=== PATIENT | female | born 1960 | race Caucasian/White ===

== ENCOUNTER 2018-09-29 15:14 | Emergency (ER) | payer OTHER ==
[~2018-09-29] VITALS: Ht 157.5 cm; Wt 69.4 kg
[2018-09-29] MEDS ORDERED: ASPI81CH PO (15:30)
[2018-09-29] MEDS ORDERED: ALPR.5 PO (15:30)
[2018-09-29 15:51] LABS: BASOPHILS ABSOLUTE AUTO 0.04 K/mm3 (0.00-0.23); BASOPHILS PERCENT AUTO 1 % (0-2); EOSINOPHILS ABSOLUTE AUTO 0.11 K/mm3 (0.00-0.68); EOSINOPHILS PERCENT AUTO 2 % (0-6); Hematocrit 45.8 % (33.0-51.0); IMMATURE GRAN ABSOLUTE AUTO 0.01 K/mm3 (0.00-0.10); IMMATURE GRAN PERCENT AUTO 0 % (0-1); LYMPHOCYTES ABSOLUTE AUTO 2.55 K/mm3 (0.84-5.20); LYMPHOCYTES PERCENT AUTO 39 % (21-46); MONOCYTES ABSOLUTE AUTO 0.43 K/mm3 (0.16-1.47); MONOCYTES PERCENT AUTO 7 % (4-13); Mean Corpuscular HGB Conc 32.8 g/dL (31.5-36.5); Mean Corpuscular Volume 95 fL (80-100); Mean Platelet Volume 9.1 fL (9.1-12.4); NEUTROPHILS ABSOLUTE AUTO 3.37 K/mm3 (1.96-9.15); NEUTROPHILS PERCENT AUTO 52 % (41-73); Platelet Count 301 K/mm3 (150-400); RDW Coefficient Variation 12.5 % (11.7-14.2); RDW Standard Deviation 43.9 fL (35.1-46.3); Red Blood Cell Count 4.84 M/mm3 (3.80-5.20); White Blood Cell Count 6.51 K/mm3 (4.00-11.30)
[2018-09-29 16:13] LABS: Alanine Aminotransfer (ALT/SGP 32 U/L (12-78); Albumin, Blood 3.9 g/dL (3.4-5.0); Albumin/Globulin Ratio 1.2 (0.8-1.8); Alk Phos 90 U/L (50-136); Anion Gap 3 mmol/L (6-16); Aspartate Aminotrans (AST/SGOT 13 U/L (12-37); Bilirubin, Total 0.3 mg/dL (0.1-1.0); Blood Urea Nitrogen 13 mg/dL (8-24); Bun/Creatinine Ratio 17.6 (12.0-20.0); CO2, Blood 31 mmol/L (21-32); Calcium, Blood 10.4 mg/dL (8.5-10.1); Chloride, Blood 104 mmol/L (98-108); Creatinine, Blood 0.74 mg/dL (0.40-1.00); Globulin, Blood 3.2 g/dL (2.2-4.0); Glomerular Filtration Rate >60 (60-); Glucose, Blood 94 mg/dL (70-99); Sodium, Blood 138 mmol/L (136-145); Total Protein, Blood 7.1 g/dL (6.4-8.2); Troponin I <0.015 ng/mL (0.000-0.040)
== END 2018-09-29 17:52 | disposition home or self-care (01) ==
LOC: ER 15:14
PROVIDERS: Physician Assistant
DX: R07.9 Chest pain, unspecified (principal); Z79.82 Long term (current) use of aspirin; F41.9 Anxiety disorder, unspecified
CPT/HCPCS: 36415; 71046; 80053; 84484; 85025; 93005; 93010; 99285-25

== ENCOUNTER → 2019-03-23 | Outpatient (CLI) | payer OTHER ==
[~2019-03-23] MED LIST: ALPR.5 PO; ASPI81CH PO
== END | disposition home or self-care (01) ==
LOC: LAB SHORT 12:21 → LAB EV 12:21
DX: N39.0 Urinary tract infection, site not specified (principal)
CPT/HCPCS: 87077; 87086; 87186

== ENCOUNTER 2020-08-13 07:58 | Day surgery (SDC) | payer OTHER ==
[~2020-08-13] VITALS: Ht 157.5 cm; Wt 68.8 kg
[~2020-08-13 07:58] MED LIST changes: +Aspir 8181 MG PO; +DULO60 PO; +HYDPAM25 PO
--- NOTE | 2020-08-13 08:56 | NUR ---
Ambulatory in Day Surgery Patient states colon prep results clear. History, Chart, Medications and Allergies reviewed before start of procedure. Patient States Post-Procedure ride home has been arranged. Lungs clear T/O to Auscultation. Patient confirms NPO status and agrees with scheduled surgery. Pre-Op teaching done. Pt verbalizes understanding.
--- NOTE | 2020-08-13 09:42 | NUR ---
08/13/20 0942 Aylin Moffett History, Chart, Medications and Allergies reviewed before start of procedure. Patient confirms NPO status and agrees with scheduled surgery. 3-LEAD EKG REVIEWED WITH PHYSICIAN PRIOR TO START OF PROCEDURE. MONITOR INTACT WITH CONTINUOUS PULSE OXIMETRY AND INTERMITTENT BP. PATIENT DETERMINED TO BE ASA APPROPRIATE FOR PROPOFOL SEDATION PRIOR TO START OF PROCEDURE BY .
--- NOTE | 2020-08-13 10:19 | NUR ---
PATIENT ALERT AND ORIENTED. TOLERATING PO FLUIDS.
--- NOTE | 2020-08-13 10:47 | NUR ---
Patient up to Ambulate independently. Gait steady. Discharge instructions reviewed with patient. Patient verbalizes understanding. Copy given to patient to take home. Patient States Post-Procedure ride home has been arranged. Discharged via wheelchair to private car for ride home. ALL BELONGINGS RETURNED TO PATIENT.
== END 2020-08-13 22:49 | disposition home or self-care (01) ==
LOC: ORSCMMR 07:58 → ORD 09:00 → ORSCMMR 22:49
PROVIDERS: Internal Medicine Gastroenterology
PROC: 0DBN8ZX Excision of Sigmoid Colon, Via Natural or Artificial Opening Endoscopic, Diagnostic (ICD-10-PCS; principal; 2020-08-13 09:00)
PROC: 0DBM8ZX Excision of Descending Colon, Via Natural or Artificial Opening Endoscopic, Diagnostic (ICD-10-PCS; principal; 2020-08-13 09:00)
PROC: 0DBK8ZX Excision of Ascending Colon, Via Natural or Artificial Opening Endoscopic, Diagnostic (ICD-10-PCS; principal; 2020-08-13 09:00)
DX: Z12.11 Encounter for screening for malignant neoplasm of colon (principal); D12.2 Benign neoplasm of ascending colon; D12.5 Benign neoplasm of sigmoid colon; Z86.010 Personal history of colon polyps; F41.9 Anxiety disorder, unspecified; Z79.82 Long term (current) use of aspirin; Z79.899 Other long term (current) drug therapy
CPT/HCPCS: 88305; J2704; J7120

== ENCOUNTER 2024-11-07 06:08 | Day surgery (SDC) | payer OTHER ==
[~2024-11-07] VITALS: Ht 160 cm; Wt 77.9 kg
[2024-11-07] MEDS ORDERED: BUSPIRONE HCL7.5 M1 PO (06:40)
[2024-11-07] MEDS ORDERED: Crestor40 MG PO (06:40)
[2024-11-07] MEDS ORDERED: Lidocaine 1%-Epineph 1:200000 30 ML SDV ONE (06:55)
[2024-11-07] MEDS ORDERED: Midazolam HCl 1MG / ML 2ML Vial ONE (07:19)
[2024-11-07] MEDS ORDERED: FentaNYL Citrate 50 MCG/ML 2 ML Injection ONE ×3 (07:19→10:59)
[2024-11-07] MEDS ORDERED: SuccINYLCHOLINE Chloride 100 MG/5 ML 5MLSYR ONE (07:20)
[2024-11-07] MEDS ORDERED: Dexamethasone Sod Phos 10 MG/ML 1ML VIAL ONE (07:20)
[2024-11-07] MEDS ORDERED: Lidocaine HCl 2% 10 ML SDA ONE (07:23)
--- NOTE | 2024-11-07 08:05 | NUR ---
11/07/24 0805 Parul Hickman 18G SALINE LOCK STARTED ON RIGHT HAND FOR PTH IV DRAWS
[2024-11-07] MEDS ORDERED: Labetalol HCL 5 MG/ML 4ML Injection (Single Dose) ONE (08:27)
[2024-11-07 11:10] VITALS: BP 156/83
--- NOTE | 2024-11-07 11:38 | NUR ---
11/07/24 1138 Tolu Vivar PT DENIES NAUSEA, PAIN 6/10 WHICH IS TOLERABLE. STATES READY FOR DISCHARGE
== END 2024-11-07 11:37 | disposition home or self-care (01) ==
LOC: ORSCSDS 06:08
PROVIDERS: Otolaryngology
PROC: 0GTH0ZZ Resection of Right Thyroid Gland Lobe, Open Approach (ICD-10-PCS; principal; 2024-11-07 07:30)
PROC: 0GTR0ZZ Resection of Parathyroid Gland, Open Approach (ICD-10-PCS; principal; 2024-11-07 07:30)
DX: C73 Malignant neoplasm of thyroid gland (principal); D35.1 Benign neoplasm of parathyroid gland; E21.0 Primary hyperparathyroidism; I10 Essential (primary) hypertension; Z79.899 Other long term (current) drug therapy
CPT/HCPCS: 83970; 88305; 88307; 88331; 93005; 93010; A9270; J0330; J1100; J2003; J2250; J2704; J3010; J7120

== ENCOUNTER 2024-12-26 10:52 | Day surgery (SDC) | payer OTHER ==
[~2024-12-26] VITALS: Ht 160 cm; Wt 78.3 kg
[~2024-12-26 10:52] MED LIST changes: +BUSPIRONE HCL7.5 M1 PO; +Crestor40 MG PO; +Lidocaine 1%-Epineph 1:200000 30 ML SDV ONE
[2024-12-26] MEDS ORDERED: Amoxicillin500 MG PO (11:15)
[2024-12-26] MEDS ORDERED: CALCIUM 600-VI1 EAC6 PO (11:15)
[2024-12-26] MEDS ORDERED: FentaNYL Citrate 50 MCG/ML 2 ML Injection ONE ×2 (12:05→14:33)
[2024-12-26] MEDS ORDERED: Midazolam HCl 1MG / ML 2ML Vial ONE (12:05)
[2024-12-26] MEDS ORDERED: Dexamethasone Sod Phos 10 MG/ML 1ML VIAL ONE (12:40)
[2024-12-26] MEDS ORDERED: Ondansetron HCl 2 MG / ML 2ML Vial ONE (12:40)
--- NOTE | 2024-12-26 12:51 | NUR ---
[facility]: DR COFFEY NOTIFIED THAT PATIENT HAD A TOOTH PULLED THIS PAST TUESDAY AND WAS STARTED ON ANTIBIOTICS. DR CABRERA AWARE OF THIS. PE DR COFFEY OK TO PROCEED.
--- NOTE | 2024-12-26 13:18 | NUR ---
12/26/[address] PT ON ANTIBIOTICS FOR A PULLED TOOTH 2 DAYS AGO.
[2024-12-26] MEDS ORDERED: Sugammadex Sodium 200 MG/2ML SDV (100 MG/ML) ONE (13:22)
[2024-12-26] MEDS ORDERED: Labetalol HCL 5 MG/ML 4ML Injection (Single Dose) ONE (13:54)
--- NOTE | 2024-12-26 14:41 | NUR ---
12/26/24 1441 Tolu Vivar FENTANYL 25MCG IV GIVEN AT 1440 FOR 8/10 THROAT PAIN
--- NOTE | 2024-12-26 15:05 | NUR ---
12/26/24 Tolu Wang FENTANYL 25MCG IV GIVEN AT 1500 FOR THROAT PAIN AT 09/04. THIS IS A TOTAL OF 100MCG FENTANYL SINCE ENTERING PACU AND STEPDOWN
[2024-12-26 15:53] VITALS: BP 138/66
== END 2024-12-26 15:51 | disposition home or self-care (01) ==
LOC: ORSCSDS 10:52
PROVIDERS: Otolaryngology
PROC: 0GTG0ZZ Resection of Left Thyroid Gland Lobe, Open Approach (ICD-10-PCS; principal; 2024-12-26 12:30)
DX: C73 Malignant neoplasm of thyroid gland (principal); E21.0 Primary hyperparathyroidism; I10 Essential (primary) hypertension; E78.5 Hyperlipidemia, unspecified; Z87.891 Personal history of nicotine dependence; F43.10 Post-traumatic stress disorder, unspecified; Z79.899 Other long term (current) drug therapy
CPT/HCPCS: 88307; A9270; J1100; J2250; J2405; J2704; J3010; J7120